=== PATIENT | female | born 1950 | race Caucasian/White ===

== ENCOUNTER 2016-08-27 14:08 | Emergency (ER) | payer OTHER, MEDICARE ==
[~2016-08-27] VITALS: Ht 165.1 cm; Wt 78.6 kg
[~2016-08-27 14:08] MED LIST: AZITHROMYCIN250 MG PO; LEVAQUIN 750MG750 M1 PO; NAPROSYN500 MG PO; NO HOME MEDICATIONS; NORCO 325 MG-51 TAB PO; TYLENOL 325MG325 MG PO; TYLENOL ARTHRI650 M1 PO; TYLENOL EXTRA500 M1 PO; VENTOLIN0.09 MG IH; XARELTO15 MG PO
[2016-08-27 14:13] VITALS: TEMP 97.6
[2016-08-27 14:54] LABS: PH 5 (5-8); URINE APPEARANCE Hazy; URINE BACTERIA Rare /hpf; URINE BILIRUBIN Negative (NEGATIVE); URINE BLOOD 1+ (NEGATIVE); URINE COLOR Yellow; URINE GLUCOSE Negative (NEGATIVE); URINE KETONE Negative (NEGATIVE); URINE RBC 0-2 /hpf; URINE UROBILINOGEN Negative (NEGATIVE)
[2016-08-27 15:24] LABS: BASO % 0.5 % (0.0-2.0); EOS # 0.3 (0.0-0.7); EOS % 3.6 % (0-4.0); GRAN # 5.1 (1.4-6.5); HEMATOCRIT 39.5 % (37.0-47.0); HEMOGLOBIN 12.5 g/dl (12.5-16.0); LYMPH # 1.8 (1.2-3.4); LYMPH % 23.7 % (20.0-51.0); MEAN CELL VOLUME 90 fl (80.0-100.0); MEAN CORPUSCULAR HEMOGLOBIN 29 pg (27.0-31.0); MEAN CORPUSCULAR HGB CONC 32 g/dl (33.0-37.0); MONO # 0.4 (0.1-0.6); MONO % 4.9 % (1.7-9.3); PLATELET COUNT 203 K/mm3 (130-400); RED BLOOD COUNT 4.37 M/mm3 (4.10-5.30); REDCELL DISTRIBUTION WIDTH-CV 13.5 % (11.5-14.5); WHITE BLOOD COUNT 7.6 K/mm3 (4.8-10.8)
[2016-08-27 15:48] LABS: ADJUSTED CALCIUM 9.2 mg/dL (8.4-10.2); ALBUMIN 4.2 gm/dL (3.5-5.0); BILIRUBIN,TOTAL 0.7 mg/dL (0.0-1.0); C-REACTIVE PROTEIN 1.1 mg/dL (0.0-0.9); CALCIUM 9.4 mg/dL (8.4-10.2); CREATININE, serum 0.89 mg/dL (0.52-1.25); POTASSIUM 4.1 mmol/L (3.4-5.0); TOTAL PROTEIN 7.9 gm/dL (6.4-8.2)
[2016-08-27] MEDS ORDERED: CIPRO 500MG TA500 MG PO (16:24)
[2016-08-27] MEDS ORDERED: FLAGYL500 MG PO (16:24)
[2016-08-27 16:29] VITALS: BP 132/68; PULSE 90
== END 2016-08-27 16:34 | disposition home or self-care (01) ==
LOC: COL.ER 14:08
PROVIDERS: Physician Assistant
DX: K52.9 Noninfective gastroenteritis and colitis, unspecified (principal)
CPT/HCPCS: J1170; J2405; J7030; Q9967

== ENCOUNTER 2017-06-23 19:20 | Emergency (ER) | payer SELFPAY ==
[~2017-06-23] VITALS: Ht 165.1 cm; Wt 77.3 kg
[~2017-06-23 19:20] MED LIST changes: +CIPRO 500MG TA500 MG PO; +FLAGYL500 MG PO
[2017-06-23 19:21] VITALS: TEMP 98.6
[2017-06-23 19:59] LABS: BASO % 0.4 % (0.0-2.0); EOS # 0.3 (0.0-0.7); EOS % 4.2 % (0-4.0); GRAN # 5.3 (1.4-6.5); GRAN % 66.1 % (42.2-75.2); HEMATOCRIT 40.9 % (37.0-47.0); HEMOGLOBIN 12.9 g/dl (12.5-16.0); LYMPH # 1.9 (1.2-3.4); LYMPH % 23.1 % (20.0-51.0); MEAN CELL VOLUME 93 fl (80.0-100.0); MEAN CORPUSCULAR HEMOGLOBIN 29 pg (27.0-31.0); MEAN CORPUSCULAR HGB CONC 32 g/dl (33.0-37.0); MEAN PLATELET VOLUME 9.7 fl (7.4-10.4); MONO # 0.5 (0.1-0.6); PLATELET COUNT 207 K/mm3 (130-400); RED BLOOD COUNT 4.42 M/mm3 (4.10-5.30)
[2017-06-23 20:01] LABS: COLLECTION METHOD CLEAN CATCH
[2017-06-23 20:06] LABS: PROTHROMBIN TIME 11.2 SECONDS (9.7-12.8)
[2017-06-23 20:09] LABS: ADJUSTED CALCIUM 9.4 mg/dL (8.4-10.2); ALBUMIN 4.4 gm/dL (3.5-5.0); BILIRUBIN,TOTAL 0.5 mg/dL (0.0-1.0); CALCIUM 9.7 mg/dL (8.4-10.2); CREATININE, serum 0.98 mg/dL (0.52-1.25); PARTIAL THROMBOPLASTIN TIME 26.2 SECONDS (26.0-37.0); POTASSIUM 4.2 mmol/L (3.4-5.0); TOTAL PROTEIN 8.3 gm/dL (6.4-8.2)
[2017-06-23 20:25] LABS: MUCOUS Present /lpf; PH 5 (5-8); URINE APPEARANCE Hazy; URINE BACTERIA Many /hpf; URINE BILIRUBIN Negative (NEGATIVE); URINE BLOOD 1+ (NEGATIVE); URINE COLOR Yellow; URINE GLUCOSE Negative (NEGATIVE); URINE KETONE Negative (NEGATIVE); URINE LEUKOCYTE ESTERASE 3+ (NEGATIVE); URINE PROTEIN(semi-quant) Negative (NEGATIVE); URINE RBC 0-2 /hpf; URINE UROBILINOGEN Negative (NEGATIVE); URINE WBC 20-50 /hpf
[2017-06-23] MEDS ORDERED: CEFTIN500 MG PO (21:26)
[2017-06-23 22:04] VITALS: BP 124/78; PULSE 89
== END 2017-06-23 22:06 | disposition home or self-care (01) ==
LOC: COL.ER 19:20
PROVIDERS: Emergency Medicine
DX: R60.0 Localized edema (principal); N39.0 Urinary tract infection, site not specified; Z86.718 Personal history of other venous thrombosis and embolism; Z96.0 Presence of urogenital implants; Z90.49 Acquired absence of other specified parts of digestive tract
CPT/HCPCS: J0696

== ENCOUNTER 2018-10-20 20:44 | Inpatient (IN) | payer MEDICARE ==
[~2018-10-20] VITALS: Ht 162.6 cm; Wt 92.5 kg
[~2018-10-20 20:44] MED LIST changes: +CEFTIN500 MG PO
[2018-10-20 21:26] LABS: BASO # 0.1 (0.0-0.2); BASO % 0.5 % (0.0-2.0); EOS # 0.1 (0.0-0.7); EOS % 0.3 % (0-4.0); GRAN # 13.5 (1.4-6.5); GRAN % 84.7 % (42.2-75.2); HEMATOCRIT 47.1 % (37.0-47.0); HEMOGLOBIN 15.4 g/dl (12.5-16.0); LYMPH # 1.2 (1.2-3.4); LYMPH % 7.6 % (20.0-51.0); MEAN CELL VOLUME 90 fl (80.0-100.0); MEAN CORPUSCULAR HEMOGLOBIN 29 pg (27.0-31.0); MEAN CORPUSCULAR HGB CONC 33 g/dl (33.0-37.0); MEAN PLATELET VOLUME 9.8 fl (7.4-10.4); MONO % 6.1 % (1.7-9.3); PLATELET COUNT 235 K/mm3 (130-400); RED BLOOD COUNT 5.23 M/mm3 (4.10-5.30); REDCELL DISTRIBUTION WIDTH-CV 13.6 % (11.5-14.5)
[2018-10-20 21:34] LABS: ALANINE AMINOTRANSFERASE 47 U/L (9-52); ALBUMIN 4.1 gm/dL (3.5-5.0); ALKALINE PHOSPHATASE 129 U/L (50-136); ANION GAP 15 mmol/L (7-16); AST,SGOT 54 U/L (15-37); BILIRUBIN,TOTAL 1.8 mg/dL (0.0-1.0); BLOOD UREA NITROGEN 53 mg/dL (7-17); CALCIUM 9.8 mg/dL (8.4-10.2); CARBON DIOXIDE 21 mmol/L (22-30); CHLORIDE 111 mmol/L (98-107); CREATINE KINASE 436 U/L (30-135); CREATININE, serum 0.93 mg/dL (0.52-1.25); GLUCOSE 132 mg/dL (74-106); POTASSIUM 4.4 mmol/L (3.4-5.0); SODIUM 147 mmol/L (137-145); TOTAL PROTEIN 8.4 gm/dL (6.4-8.2)
[2018-10-20 21:37] LABS: PROTHROMBIN TIME 11.4 SECONDS (9.7-12.8)
[2018-10-20 21:47] LABS: TROPONIN-I < 0.012 ng/mL (0.000-0.035)
[2018-10-20 23:03] LABS: COLLECTION METHOD CATHETER
[2018-10-20 23:17] LABS: MUCOUS Present /lpf; PH 5 (5-8); SQUAMOUS EPITHELIAL 0-2 /hpf; URINE APPEARANCE Hazy; URINE BACTERIA Moderate /hpf; URINE BILIRUBIN Negative (NEGATIVE); URINE BLOOD Negative (NEGATIVE); URINE COLOR Amber; URINE GLUCOSE Negative (NEGATIVE); URINE KETONE Trace (NEGATIVE); URINE LEUKOCYTE ESTERASE Negative (NEGATIVE); URINE NITRATE Negative (NEGATIVE); URINE PROTEIN(semi-quant) 1+ (NEGATIVE)
[2018-10-21] VITALS (848 sets, daily range): BP systolic 89–143; BP diastolic 43–108; PULSE 104–118; TEMP 97.7–98.6; O2SAT 61–100
--- NOTE | 2018-10-21 03:55 | NUR ---
PT TRANSFERRED TO ICU3 SHE IS APPARENTLY SEPTIC. REPORT CALLED TO SECURITY SITE SUPERVISOR. PT TRANSFERRED VIA HER BED WITH HER BELONGINGS. PT HAD VALUABLES LOCKED UP IN SAFE BY MAINTENANCE ENGINEER OIL FIELD.
--- NOTE | 2018-10-21 04:00 | NUR ---
PT VERY PLEASANT. RATES PAIN 7.5/10 ON NUMERIC SCALE DESCRIBING PAIN AN ACHE IN LEFT HIP RADIATING DOWN TO LEFT FOOT. PT HAS TWO 20G IV'S, ONE IN RIGHT SHOULDER AND ONE IN RIGHT BREAST. PT STATES SHE WAS LAYING FOR FOUR DAYS ON RIGHT SIDE OF BODY. RIGHT SHOULDER, RIGHT BREAST, RIGHT FLANK, AND ABDOMEN ARE REDDENED. PT HAS EXCORIATION TO ABD, RIGHT BREAST, AND GROIN. PT HAS LEFT MASTECTOMY FROM CANCER. SCARS TO RIGHT SHOULDER FROM SHOULDER REPLACEMENT, TWO SCARS ON ABD FROM KIDNEY STENT AND GALLBLADDER SURGERY. PT HAS SLIGHT WEAKNESS ON RIGHT ARM.
--- NOTE | 2018-10-21 08:00 | NUR ---
Per pt request, Uli Goode and Becca Javy called and given update, ICU phone number and privacy access code provided. Pt states she will not consent to any procedure or sugery (PICC or GammaNail, respectively) until Uli Goode is here. Uli stated that he has work today and doesnt get off until 5, but will try to ask his boss to have the day off so as to be present for Ana. Pt AAOx4, able to recall aforementioned family/friend's phone numbers from memory. Conversation appropriate. Bedside report recieved from BRIGITTE Suarez - head to toe assessment performed together - skin breakdown noted on abdomen, right toe, breast, and under right breast - coccyx and gluteal fold unable to assess d/t pain reported by pt when turn attempted. Pain with rest/no movement rated at 0/10.
--- NOTE | 2018-10-21 08:54 | NUR ---
EVON Santiago with surgical team called to get update. Estimated time is unknown for surgcial intervention - did mention to her that pt would like Uli to be present. Pt did consent to PICC line placement without his presence. Pt remains alert and oriented. Xray confirmation of PICC confirmed - label maker at bedside collecting sample from central line
--- NOTE | 2018-10-21 11:29 | NUR ---
Initial visit; Patient thanked Kickboxing Instructor for offering prayer and keeping her in Kickboxing Instructor's prayers.
[2018-10-21 11:32] LABS: BASO # 0.1 (0.0-0.2); BASO % 0.4 % (0.0-2.0); EOS % 0.3 % (0-4.0); GRAN % 77.2 % (42.2-75.2); HEMATOCRIT 37.9 % (37.0-47.0); LYMPH # 1.8 (1.2-3.4); LYMPH % 12.4 % (20.0-51.0); MEAN CELL VOLUME 94 fl (80.0-100.0); MEAN CORPUSCULAR HEMOGLOBIN 29 pg (27.0-31.0); MEAN CORPUSCULAR HGB CONC 31 g/dl (33.0-37.0); MEAN PLATELET VOLUME 10.4 fl (7.4-10.4); MONO # 1.3 (0.1-0.6); MONO % 9.2 % (1.7-9.3); PLATELET COUNT 200 K/mm3 (130-400); RED BLOOD COUNT 4.05 M/mm3 (4.10-5.30)
[2018-10-21 11:38] LABS: HEMOGLOBIN 11.8 g/dl (12.5-16.0)
[2018-10-21 11:40] LABS: CALCIUM 8.5 mg/dL (8.4-10.2); CREATININE, serum 0.92 mg/dL (0.52-1.25); MAGNESIUM 2.2 mg/dL (1.6-2.3); POTASSIUM 3.9 mmol/L (3.4-5.0)
--- NOTE | 2018-10-21 11:41 | NUR ---
SW met with patient and cousin to discuss discharge planning. Patient lives alone in [place] and was down for four days before being found. Patients PCP is Dr Thibodeaux and she [facility]. Patient utilizes a walker but was not using it when she fell. Patient does not have a DPOA but was interested in one. SW provided a form and will follow up with patient is ready to sign. Patient was presented with a choice form for SNF and would like [facility] and [facility]. If those are unable to accept she would like to go to somewhere in [place]. PANTERA will continue to follow.
--- NOTE | 2018-10-21 12:49 | NUR ---
DPOA completed. Copy on chart and original and copies provided to patient and cousin.
--- NOTE | 2018-10-21 18:15 | NUR ---
Pt arrived on ICU bed awake and alert complaining of no pain. Left hip assessed with Elizabeth,RN - pin point size spotting of blood through aquacell and is CDI. Ice pack in place. VSS, unlabored respirations on 2L via nasal cannula, 2pillows placed between legs for abduction, bilateral IVON and SCD in place, pulses distally 2+ bilaterally, following commands, appropriate conversation, cousin at bedside now from waiting room,
--- NOTE | 2018-10-21 19:25 | NUR ---
Report received from Cristian Child RN. Pt sleeping at this time.
[2018-10-21 20:09] LABS: HEMOGLOBIN 10.2 g/dl (12.5-16.0)
[2018-10-21 20:10] LABS: HEMATOCRIT 33.6 % (37.0-47.0)
--- NOTE | 2018-10-21 20:30 | NUR ---
Woke pt up in order to complete assessment at this time. Pt pleasant although lethargic at this time. Cooperative with assessment and demonstrated ability to follow instructions. Pt stated todays date was although was able to correctly report the month.
--- NOTE | 2018-10-21 22:30 | NUR ---
Pt was assisted to more of a seated position with medication administration. Pt agreed to drink some fluids at this time and ate some jello following passing bedside swallow study. Pt tolerated clear liquids well. Pt agreed to reposition to left side at this time. Pt wanted to attempt to turn on own although extra staff member was obtained due to stiffness and decreased mobility to right arm. Pt denied any pain prior to movement although hollered out with repositioning onto left hip. Once pt was able to settle down following repositioning pt verbalized improvement in pain. Education on needing to stay on top of pain was provided with verbal agreement with pt received to notify nurse when pt begins to return.
[2018-10-22] VITALS (878 sets, daily range): BP systolic 94–107; BP diastolic 48–67; PULSE 96–110; TEMP 97.3–99.1; O2SAT 84–100
[2018-10-22 05:26] LABS: BASO % 0.2 % (0.0-2.0); GRAN # 9.1 (1.4-6.5); GRAN % 84.6 % (42.2-75.2); HEMATOCRIT 26.5 % (37.0-47.0); HEMOGLOBIN 8.1 g/dl (12.5-16.0); LYMPH # 0.8 (1.2-3.4); LYMPH % 7.1 % (20.0-51.0); MEAN CELL VOLUME 96 fl (80.0-100.0); MEAN CORPUSCULAR HEMOGLOBIN 29 pg (27.0-31.0); MEAN CORPUSCULAR HGB CONC 31 g/dl (33.0-37.0); MONO # 0.8 (0.1-0.6); MONO % 7.5 % (1.7-9.3); PLATELET COUNT 130 K/mm3 (130-400); RED BLOOD COUNT 2.75 M/mm3 (4.10-5.30)
[2018-10-22 05:36] LABS: CALCIUM 7.9 mg/dL (8.4-10.2); CREATININE, serum 0.93 mg/dL (0.52-1.25); POTASSIUM 3.9 mmol/L (3.4-5.0)
--- NOTE | 2018-10-22 05:55 | NUR ---
Pt requested jello and applesauce. Pt continued to tolerate well so diet will be advanced.
--- NOTE | 2018-10-22 07:06 | NUR ---
Bedside report provided to Janny Lomeli RN
--- NOTE | 2018-10-22 09:35 | NUR ---
Dr. Abarca rounds on patient at this time. Orders as entered CPOE. Provided states preference for patient to move to surgical floor today.
--- NOTE | 2018-10-22 09:36 | NUR ---
Patient accepted to [facility] for skilled. [facility] has not yet accepted.
--- NOTE | 2018-10-22 11:10 | NUR ---
PANTERA and SW student met with patient after clinical rounding. She would like a referral sent to [facility] as well. SW faxed referral and spoke to [facility]. She reports she is going to be gone after today for a week so she should be able to have a decision today. [facility] has accepted patient.
--- NOTE | 2018-10-22 15:15 | NUR ---
arrived on unit per bed, is alert and oriented and denies needs at this time
--- NOTE | 2018-10-22 16:15 | NUR ---
appears to be sleeping, awakens easily
--- NOTE | 2018-10-22 16:17 | NUR ---
Patient accepted to [facility] for tomorrow or . If patient dc tomorrow the doc to doc will be with Dr Bui [phone]. Nurses need called tomorrow with update if patient will be coming and what day. PANTERA informed PANTERA Gallagher on surgical floor.
--- NOTE | 2018-10-22 16:30 | NUR ---
SW and SW student met with the patient to inform of [facility] accepting and how she will need transportation if she chooses to pursue [facility]. The patient reports that she only has her cousin and is not sure if he would be able to provide transport. The patient reports that she needs to tonight to think about whether she wants to pursue [facility], [facility], or [facility]. SW to follow up with the patient tomorrow morning, 10/23.
--- NOTE | 2018-10-22 16:33 | NUR ---
awake and SENIOR DIRECTOR MARKETING in and checking vital signs, assessment completed, see shift assessment for further info, will assist her with ordering supper, denies urge to void or other needs
--- NOTE | 2018-10-22 17:15 | NUR ---
sitting up in bed eating supper independently, denies needs
--- NOTE | 2018-10-22 18:49 | NUR ---
bedside shift report given to Ale Alcantar
--- NOTE | 2018-10-22 19:50 | NUR ---
Shift assessment complete at this time. Plan of care reviewed with patient et family at bedside. Additional time taken to address any other needs or concerns. Denies pain or discomfort. Will continue to monitor.
[2018-10-23] VITALS (7 sets, daily range): BP systolic 99–133; BP diastolic 52–84; PULSE 95–132; TEMP 98–98.9
--- NOTE | 2018-10-23 | NUR ---
Pt resting in bed. Vitals stable. Reports L hip pain improving after PRN administration. Denies any other complaints. Will continue to monitor.
--- NOTE | 2018-10-23 04:00 | NUR ---
Pt sleeping comfortably in bed. Denies pain or any other discomfort. Vitals stable at this time. Will continue to monitor.
--- NOTE | 2018-10-23 06:50 | NUR ---
resting in bed, bedside shift report received from BRIGITTE Alcantar
--- NOTE | 2018-10-23 07:01 | NUR ---
Bedside report given to BRIGITTE Myles.
[2018-10-23 07:36] LABS: BASO % 0.3 % (0.0-2.0); EOS # 0.2 (0.0-0.7); GRAN # 6.7 (1.4-6.5); GRAN % 75.4 % (42.2-75.2); LYMPH # 1.3 (1.2-3.4); LYMPH % 14.9 % (20.0-51.0); MEAN CELL VOLUME 95 fl (80.0-100.0); MEAN CORPUSCULAR HGB CONC 31 g/dl (33.0-37.0); MEAN PLATELET VOLUME 9.8 fl (7.4-10.4); MONO # 0.6 (0.1-0.6); MONO % 6.8 % (1.7-9.3); PLATELET COUNT 123 K/mm3 (130-400); RED BLOOD COUNT 2.66 M/mm3 (4.10-5.30); REDCELL DISTRIBUTION WIDTH-CV 13.8 % (11.5-14.5)
[2018-10-23 07:39] LABS: HEMATOCRIT 25.3 % (37.0-47.0); HEMOGLOBIN 7.8 g/dl (12.5-16.0); MEAN CORPUSCULAR HEMOGLOBIN 29 pg (27.0-31.0)
[2018-10-23 07:53] LABS: CREATININE, serum 0.9 mg/dL (0.52-1.25); POTASSIUM 3.7 mmol/L (3.4-5.0)
--- NOTE | 2018-10-23 08:00 | NUR ---
appears to be dozing, awakened and full assessment completed, see interventions for further info, breakfast ordered
--- NOTE | 2018-10-23 09:10 | NUR ---
Dr Abarca and care team in to see patient, She is sitting up in bed eating breakfast, telemetry discontinued and IV fluis stopped
--- NOTE | 2018-10-23 09:15 | NUR ---
PANTERA and PANTERA student attended clinical rounds and then followed up with the patient on preference for post-acute rehab. The patient reports that she has decided to pursue [facility]. SW contacted and updated Ruth at [facility]. SW to update [facility] and continue to follow.
--- NOTE | 2018-10-23 10:05 | NUR ---
PANTERA faxed updates to Ruth at [facility].
--- NOTE | 2018-10-23 11:08 | NUR ---
physical therapy in and worked with patient and assisted her out of bed and into recliner, assisted her with ordering lunch
--- NOTE | 2018-10-23 12:06 | NUR ---
First visit from the algologist. prayed with patient. No other needs right now.
--- NOTE | 2018-10-23 12:43 | NUR ---
assisted up to bedside commode after much encouragement, took few short steps to commode, had small bowel movment while up
--- NOTE | 2018-10-23 12:55 | NUR ---
off commode and back to recliner, medicated with roxicodone 10mg for c/os pain 03/08
--- NOTE | 2018-10-23 13:45 | NUR ---
remains up in chair visiting with a friend
--- NOTE | 2018-10-23 14:41 | NUR ---
remains up in recliner, denies needs
--- NOTE | 2018-10-23 16:30 | NUR ---
physical therapy in to work with patient, therapist and SFDC ARCHITECT assisted her to bedside commode and she voided and then back into bed, SFDC ARCHITECT will help her with ordering supper
--- NOTE | 2018-10-23 17:45 | NUR ---
sitting up in bed watching TV and eating supper, denies needs
--- NOTE | 2018-10-23 18:58 | NUR ---
bedside shift report given to BRIGITTE Jha
--- NOTE | 2018-10-23 21:00 | NUR ---
Patient in bed, is alert and oriented x3. Has right PICC without redness or swelling. Watching TV. Has numerous abrasions and healing lesions on rt breast and rt abdomen. Weakened right arm, mixing technician are equal. Has had left mastectomy. Bilateral lower leg swelling. Wearing SCD's bilaterally. Uses call light effectively.
[2018-10-24] VITALS (10 sets, daily range): BP systolic 96–134; BP diastolic 50–74; PULSE 94–113; TEMP 97.6–99.5
--- NOTE | 2018-10-24 04:00 | NUR ---
Patient up to BSC with 2 MAX assist. Had been incontinent and also voids in commode. Right PICC intact, no redness or swelling. Aquacell and gauze intact to left hip. Ice pack placed. Returned to bed with 2 assist and gait belt, better transfer back to bed.
--- NOTE | 2018-10-24 04:10 | NUR ---
Medicated with Lortab 7.5mg 2 tabs po at this time for pain 01/06.
[2018-10-24 07:14] LABS: BASO % 0.4 % (0.0-2.0); EOS # 0.4 (0.0-0.7); GRAN # 5.2 (1.4-6.5); GRAN % 63.1 % (42.2-75.2); LYMPH % 24.1 % (20.0-51.0); MEAN CELL VOLUME 95 fl (80.0-100.0); MEAN CORPUSCULAR HGB CONC 31 g/dl (33.0-37.0); MEAN PLATELET VOLUME 9.8 fl (7.4-10.4); MONO # 0.5 (0.1-0.6); MONO % 6.2 % (1.7-9.3); PLATELET COUNT 134 K/mm3 (130-400); RED BLOOD COUNT 2.44 M/mm3 (4.10-5.30); REDCELL DISTRIBUTION WIDTH-CV 14.1 % (11.5-14.5)
[2018-10-24 07:19] LABS: HEMATOCRIT 23.1 % (37.0-47.0); HEMOGLOBIN 7.2 g/dl (12.5-16.0); MEAN CORPUSCULAR HEMOGLOBIN 30 pg (27.0-31.0)
[2018-10-24 07:21] LABS: CALCIUM 8.2 mg/dL (8.4-10.2); CREATININE, serum 0.99 (0.52-1.25); POTASSIUM 3.7 mmol/L (3.4-5.0)
--- NOTE | 2018-10-24 07:24 | NUR ---
sitting up in bed ready for breakfast, bedside shift report received from BRIGITTE Jha
--- NOTE | 2018-10-24 08:17 | NUR ---
Patient is resting in bed. No drainage, redness, or edema noted to LANA PICC line. Patient rates pain 4/10 with movment. She voices no complains the this time. Will continuie to monitor.
--- NOTE | 2018-10-24 09:20 | NUR ---
assisted from bedside commode to recliner, is a max 2 assist and she has difficulty standing straight, abrasion to right breast with some oozing and covered with telfa and paper tape, student nurse assisting with care, full assessment completed
--- NOTE | 2018-10-24 11:04 | NUR ---
PANTERA and PANTERA student attended clinical rounds. The patient's blood count went down and they plan to give her a unit of blood today. PANTERA then contacted and faxed updates to Ruth at [facility]. SW to continue to follow.
--- NOTE | 2018-10-24 11:31 | NUR ---
unit of blood started at 60ml/hr, instructed on s/s of reaction and verbalizes understanding
--- NOTE | 2018-10-24 11:47 | NUR ---
infusion continues without s/s of raction, rate increased to 125ml/hr
--- NOTE | 2018-10-24 13:19 | NUR ---
Patient is resting in chair. No reaction noted to blood transfusion. pain rated @ 4/10. She voices no complinats at this time. Will continue to monitor.
--- NOTE | 2018-10-24 13:32 | NUR ---
blood continues without s/s of reaction
--- NOTE | 2018-10-24 14:15 | NUR ---
appears to be sleeping, awakens easily, unit of blod infused and denies s/s of reaction
--- NOTE | 2018-10-24 15:09 | NUR ---
remains resting up in chair, denies needs
--- NOTE | 2018-10-24 16:02 | NUR ---
assisted up to bedside commode with therapist and this nurse, was able to take few small steps from recliner to commode, voided large amount and h ad large bowel movement, then assited into bed,
--- NOTE | 2018-10-24 18:37 | NUR ---
resting in bed, bedside shift report given to Yudelka RN
--- NOTE | 2018-10-24 20:30 | NUR ---
Patient in bed, awakened for HS meds. Takes meds without problem. Reports pain to left hip "hurts some". Has Aquacell drsg to left hip and gauze with occlusive distal to Aquacell, ice pack in place. Has a right PICC without redness or swelling. Is alert and oriented x3. Bilateral lower leg edema present. Abrasions and lesions to right breast healing. Right abdomen and right hip abrasions healing as well. Patient voiding per BSC and wears a depends for occasional incontinence.
[2018-10-25 04:00] VITALS: BP 126/50; PULSE 105; TEMP 98.2
--- NOTE | 2018-10-25 05:30 | NUR ---
Patient incontinent of large amount of urine. Assisted to BSC with MAX 2 assist to void. Patient resists movement, yelling "I can't do it". With much encouragement patient is able to take some steps and sit on BSC. Voids and assisted back to bed. Patient asks for 3 people to transfer her, with much encouragement patient is able to take steps to the bed, assisted with 2 and the gait belt and her walker. Unable to lift her legs, assisted by staff back to bed. Ice pack replaced to left hip. Medicated with Sedan 7.5mg 2 tabs prior to transfer.
[2018-10-25 06:53] LABS: MEAN CELL VOLUME 94 fl (80.0-100.0); MEAN CORPUSCULAR HGB CONC 31 g/dl (33.0-37.0); MEAN PLATELET VOLUME 9.9 fl (7.4-10.4); PLATELET COUNT 171 K/mm3 (130-400); RED BLOOD COUNT 2.85 M/mm3 (4.10-5.30)
[2018-10-25 06:55] LABS: HEMATOCRIT 26.7 % (37.0-47.0); HEMOGLOBIN 8.3 g/dl (12.5-16.0); MEAN CORPUSCULAR HEMOGLOBIN 29 pg (27.0-31.0)
[2018-10-25 07:08] LABS: CALCIUM 8.4 mg/dL (8.4-10.2); CREATININE, serum 0.85 (0.52-1.25); POTASSIUM 3.5 mmol/L (3.4-5.0)
[2018-10-25 08:15] VITALS: BP 105/57; PULSE 103; TEMP 98.3
--- NOTE | 2018-10-25 08:22 | NUR ---
Patient is resting in bed. No redness, drainage, or edema noted to LANA PICC line. Left hip dressing remains CDI. Pain rated @ 3/10. She voices no complaints at this time. Call light within reach. Will continue to monitor.
[2018-10-25 08:56] LABS: BAND 1 % (0-10); EOSINOPHIL 7 % (0-4); LYMPHOCYTE 16 % (20.0-51.0); METAMYELOCYTE 2 % (0-0); NEUTROPHILS 70 % (42.0-75.2); PLATELET ESTIMATE NORMAL (NORMAL)
--- NOTE | 2018-10-25 09:00 | NUR ---
Patient alert and oriented, answers questions appropriately. See assessment. Patient has notable anxiety with attempting to do turn and perform pericare. LLE with incisions well approximated, ignacia intact. Aquacel placed over incisions. FWB. 2+BLE edema, pulses palpable. No c/o at this time.
[2018-10-25] MEDS ORDERED: ASPI325T6 PO (09:12)
[2018-10-25] MEDS ORDERED: FERRO-TIME325 MG PO (09:12)
[2018-10-25] MEDS ORDERED: GOOD NEIGH1200 MG/15 PO (09:14)
[2018-10-25] MEDS ORDERED: DULCOLAX S10 MG/SUPP RC (09:14)
[2018-10-25] MEDS ORDERED: SENOKOT S 50 MG1 TAB PO (09:14)
[2018-10-25] MEDS ORDERED: TYLENOL 500MG500 MG PO (09:15)
[2018-10-25] MEDS ORDERED: NORCO 325 MG-51 TAB PO (09:16)
--- NOTE | 2018-10-25 10:12 | NUR ---
The patient is to discharge today, 10/25/18, to [facility] for a skilled stay. Transportation was set for 1300 via [facility]. SW informed the patient, patients nurse, and the patients cousin via phone. They were all in agreeance. PANTERA student presented and reviewed IM form to the patient. The patient was agreeable, signed, and was given a copy. No additional needs at this time.
[2018-10-25 11:26] VITALS: BP 105/57; PULSE 103; TEMP 98.3
[2018-10-25 11:57] VITALS: BP 105/88; PULSE 113; TEMP 97.7
--- NOTE | 2018-10-25 12:27 | NUR ---
Patient is resting in bed. Left hip dressing remains CDI. Patient rates pain @ 0/10. No edema, redness, or pain noted to LANA PICC line. She is scheudled to be discharged today. No complaints at this will. Will continue to monitor.
--- NOTE | 2018-10-25 13:43 | NUR ---
Saraeint transfered to [facility] with transportation staff at 1335. Report called.
== END 2018-10-25 13:35 | DRG 480 ==
LOC: COL.ER 20:44 → ICU 22:48 → SURG 22:48 → COL.ER 22:48 → ICU 10-21 03:58 → SURG 10-21 03:58 → ICU 10-22 14:54 → SURG 10-22 14:54
PROVIDERS: Emergency Medicine; Internal Medicine; Nurse Practitioner Family; Physician Assistant; ADMIT Internal Medicine
PROC: 0QS736Z Reposition Left Upper Femur with Intramedullary Internal Fixation Device, Percutaneous Approach (ICD-10-PCS; principal; 2018-10-22)
DX: S72.142A Displaced intertrochanteric fracture of left femur, initial encounter for closed fracture (principal); A41.9 Sepsis, unspecified organism; R65.20 Severe sepsis without septic shock; L03.311 Cellulitis of abdominal wall; E87.2 Acidosis; M62.82 Rhabdomyolysis; E87.0 Hyperosmolality and hypernatremia; E44.0 Moderate protein-calorie malnutrition; W18.30XA Fall on same level, unspecified, initial encounter; Z23 Encounter for immunization; Z85.3 Personal history of malignant neoplasm of breast; Z85.828 Personal history of other malignant neoplasm of skin; M25.511 Pain in right shoulder; D64.9 Anemia, unspecified; R62.7 Adult failure to thrive; Z68.31 Body mass index [BMI] 31.0-31.9, adult
CPT/HCPCS: 99223-AI; 99232-AI; 99233-AI; 99239; A4314; A9284; C1713; C1751; C9113; J0690; J1100; J2250; J2270; J2405; J2704; J3010; J3370; J7030; J7040; J7050; P9016

== ENCOUNTER 2018-11-12 22:25 | Emergency (ER) | payer MEDICARE ==
[~2018-11-12] VITALS: Ht 162.6 cm; Wt 90.9 kg
[~2018-11-12 22:25] MED LIST changes: -ASPIRIN 32325 MG/TAB PO; -IMODIUM 2MG CAPS2 MG PO; -LASIX 20MG TABL20 MG PO; -MILK OF MA400 MG/52; -MYLANTA 150 ML150 M1; -TYLENOL SU650 MG/SUP RC
[2018-11-12 22:57] LABS: BASO % 0.3 % (0.0-2.0); EOS # 0.1 (0.0-0.7); EOS % 0.6 % (0-4.0); GRAN # 6.6 (1.4-6.5); GRAN % 74.1 % (42.2-75.2); HEMOGLOBIN 10.2 g/dl (12.5-16.0); LYMPH # 1.5 (1.2-3.4); LYMPH % 16.4 % (20.0-51.0); MEAN CELL VOLUME 93 fl (80.0-100.0); MEAN CORPUSCULAR HEMOGLOBIN 29 pg (27.0-31.0); MEAN CORPUSCULAR HGB CONC 32 g/dl (33.0-37.0); MEAN PLATELET VOLUME 9.1 fl (7.4-10.4); MONO # 0.7 (0.1-0.6); PLATELET COUNT 278 K/mm3 (130-400); RED BLOOD COUNT 3.47 M/mm3 (4.10-5.30)
[2018-11-12 23:08] LABS: HEMATOCRIT 32.2 % (37.0-47.0)
[2018-11-12 23:39] LABS: ALBUMIN 3.6 gm/dL (3.5-5.0); BILIRUBIN,TOTAL 0.6 mg/dL (0.0-1.0); CALCIUM 8.7 mg/dL (8.4-10.2); CREATININE, serum 0.96 (0.52-1.25); POTASSIUM 3.6 mmol/L (3.4-5.0); TOTAL PROTEIN 7.5 gm/dL (6.4-8.2)
[2018-11-12 23:47] LABS: COLLECTION METHOD CATHETER
[2018-11-12 23:57] LABS: PH 6 (5-8); SQUAMOUS EPITHELIAL 0-2 /hpf; URINE APPEARANCE Cloudy; URINE BACTERIA Occasional /hpf; URINE BILIRUBIN Negative (NEGATIVE); URINE BLOOD 1+ (NEGATIVE); URINE COLOR Yellow; URINE GLUCOSE Negative (NEGATIVE); URINE KETONE Negative (NEGATIVE); URINE LEUKOCYTE ESTERASE 3+ (NEGATIVE); URINE NITRATE Negative (NEGATIVE); URINE PROTEIN(semi-quant) Negative (NEGATIVE); URINE RBC 0-2 /hpf; URINE UROBILINOGEN Negative (NEGATIVE)
[2018-11-13] MEDS ORDERED: CEFTIN500 MG PO ×2 (00:16→01:02)
[2018-11-13] MEDS ORDERED: LASIX 20MG TABL20 MG PO (00:52)
[2018-11-13] MEDS ORDERED: ASPIRIN 32325 MG/TAB PO (00:53)
[2018-11-13] MEDS ORDERED: ELIQUIS 5MG PO (00:54)
[2018-11-13] MEDS ORDERED: CIPRO 500MG TA500 MG PO (00:54)
[2018-11-13] MEDS ORDERED: TYLENOL SU650 MG/SUP RC (00:55)
[2018-11-13] MEDS ORDERED: DULCOLAX S10 MG/SUPP RC (00:55)
[2018-11-13] MEDS ORDERED: IMODIUM 2MG CAPS2 MG PO (00:56)
[2018-11-13] MEDS ORDERED: MILK OF MA400 MG/52 (00:57)
[2018-11-13] MEDS ORDERED: NORCO 325 MG-51 TAB PO (00:57)
[2018-11-13] MEDS ORDERED: MYLANTA 150 ML150 M1 (00:57)
[2018-11-13] MEDS ORDERED: TYLENOL 500MG500 MG PO (00:58)
[2018-11-13] MEDS ORDERED: TYLENOL 325MG325 MG PO (00:58)
[2018-11-13 01:00] VITALS: BP 117/53; PULSE 98; TEMP 98.3
== END 2018-11-13 01:40 | disposition home or self-care (01) ==
LOC: COL.ER 22:25
PROVIDERS: Emergency Medicine
DX: N39.0 Urinary tract infection, site not specified (principal); I10 Essential (primary) hypertension; Z79.82 Long term (current) use of aspirin; Z79.01 Long term (current) use of anticoagulants
CPT/HCPCS: J0696; J1885; J7030

== ENCOUNTER → 2018-11-12 | Outpatient (REF) ==
[~2018-11-12] MED LIST changes: +ASPI325T6 PO; +ASPIRIN 32325 MG/TAB PO; +DULCOLAX S10 MG/SUPP RC; +ELIQUIS 5MG PO; +FERRO-TIME325 MG PO; +GOOD NEIGH1200 MG/15 PO; +IMODIUM 2MG CAPS2 MG PO; +LASIX 20MG TABL20 MG PO; +MILK OF MA400 MG/52; +MYLANTA 150 ML150 M1; +NYSTATIN100000 U/G TP; +SENOKOT S 50 MG1 TAB PO; +TOPROL XL 25MG25 MG PO; +TYLENOL 500MG500 MG PO; +TYLENOL SU650 MG/SUP RC
[2018-11-12 14:45] LABS: COLLECTION METHOD CLEAN CATCH
[2018-11-12 15:16] LABS: MUCOUS Present /lpf; PH 6 (5-8); URINE APPEARANCE Cloudy; URINE BACTERIA Many /hpf; URINE BILIRUBIN Negative (NEGATIVE); URINE BLOOD 1+ (NEGATIVE); URINE COLOR Yellow; URINE GLUCOSE Negative (NEGATIVE); URINE KETONE Negative (NEGATIVE); URINE LEUKOCYTE ESTERASE 3+ (NEGATIVE); URINE NITRATE Negative (NEGATIVE); URINE PROTEIN(semi-quant) Negative (NEGATIVE); URINE UROBILINOGEN Negative (NEGATIVE)
== END ==
LOC: ZCOL.LAB 14:44
PROVIDERS: Internal Medicine
DX: Z01.89 Encounter for other specified special examinations (principal)

== ENCOUNTER → 2018-11-16 | Outpatient (CLI) | payer MEDICARE ==
[~2018-11-16] MED LIST changes: +ASPIRIN 32325 MG/TAB PO; +IMODIUM 2MG CAPS2 MG PO; +LASIX 20MG TABL20 MG PO; +MILK OF MA400 MG/52; +MYLANTA 150 ML150 M1; +TYLENOL SU650 MG/SUP RC
[2018-11-16 15:48] LABS: COLLECTION METHOD CLEAN CATCH
[2018-11-16 15:55] LABS: MUCOUS Present /lpf; PH 5 (5-8); SQUAMOUS EPITHELIAL 0-2 /hpf; URINE APPEARANCE Clear; URINE BACTERIA None Seen /hpf; URINE BILIRUBIN Negative (NEGATIVE); URINE BLOOD Negative (NEGATIVE); URINE COLOR Straw; URINE GLUCOSE Negative (NEGATIVE); URINE KETONE Negative (NEGATIVE); URINE LEUKOCYTE ESTERASE Negative (NEGATIVE); URINE NITRATE Negative (NEGATIVE); URINE PROTEIN(semi-quant) Negative (NEGATIVE); URINE RBC 0-2 /hpf; URINE UROBILINOGEN Negative (NEGATIVE)
== END ==
LOC: ZCOL.LAB 15:26
PROVIDERS: Internal Medicine
DX: R65.20 Severe sepsis without septic shock (principal)